=== PATIENT | female | born 1990 | race Caucasian/White ===

== ENCOUNTER 2020-12-12 09:30 | Outpatient (CLI) | payer BC, SELFPAY ==
--- NOTE | 2020-12-12 11:30 | NEURO_ITS ---
Impression: # Complains of gait dysfunction. # Bilateral amplitude drop of nerve responses. # Neurogenic changes in the muscles but no acute changes. # Possibly higher involvement. # Clinical correlation recommended. Nerve Conduction Studies Anti Sensory Summary Table Stim Site NR Peak (ms) P-T Amp (?V) Site1 Site2 Delta-P (ms) Dist (cm) Jitendra (m/s) Left Sup Fibular Anti Sensory (Ant Lat Mall) 14 cm 3.6 6.1 14 cm Ant Lat Mall 3.6 16.0 44 Right Sup Fibular Anti Sensory (Ant Lat Mall) 14 cm 4.4 27.5 14 cm Ant Lat Mall 4.4 16.0 36 Left Sural Anti Sensory (Lat Mall) Calf 4.2 3.0 Calf Lat Mall 4.2 16.0 38 Right Sural Anti Sensory (Lat Mall) Calf 4.8 9.8 Calf Lat Mall 4.8 16.0 33 Motor Summary Table Stim Site NR Onset (ms) O-P Amp (mV) Site1 Site2 Delta-0 (ms) Dist (cm) Jitendra (m/s) Left Peroneal Motor (Vastus Med) Ankle 4.2 0.5 Popit Ankle 7.7 35.0 45 Popit 11.9 0.2 Right Peroneal Motor (Vastus Med) Ankle 4.8 0.7 Popit Ankle 7.7 33.0 43 Popit 12.5 0.7 Left Tibial Motor (Abd Caballero Brev) Ankle 4.8 0.5 Knee Ankle 8.5 35.0 41 Knee 13.3 0.2 Right Tibial Motor (Abd [place]allero Brev) Ankle 4.4 0.8 Knee Ankle 9.0 40.0 44 Knee 13.4 0.2 F Wave Studies NR F-Lat (ms) L-R F-Lat (ms) Left Peroneal (Mrkrs) (EDB) 54.97 0.58 Right Peroneal (Mrkrs) (EDB) 55.56 0.58 Left Tibial (Mrkrs) (Abd Hallucis) 53.92 0.47 Right Tibial (Mrkrs) (Abd Hallucis) 54.39 0.47 EMG Side Muscle Nerve Root Ins Act Fibs Amp Dur Recrt Comment Right AntTibialis Dp Br Fibular L4-5 Nml Nml Nml Nml Nml Right Gastroc Tibial S1-2 Nml Nml Nml Nml Nml Right Fibularis Long Sup Br Fibular L5-S1 Nml Nml Decr Nml Reduced Right Flex Dig Long Tibial L5-S2 Nml Nml Nml Nml Nml Right Ext Dig Brev Dp Br Fibular L5, S1 Nml Nml Decr Nml Reduced Left AntTibialis Dp Br Fibular L4-5 Nml Nml Nml Nml Nml Left Gastroc Tibial S1-2 Nml Nml Nml Nml Nml Left Fibularis Long Sup Br Fibular L5-S1 Nml Nml Decr Nml Reduced Left Flex Dig Long Tibial L5-S2 Nml Nml Nml Nml Nml Left Ext Dig Brev Dp Br Fibular L5, S1 Nml Nml Decr Nml Reduced MTDD
== END 2020-12-12 09:31 | disposition home or self-care (01) ==
LOC: ANHNEURO 09:36
PROVIDERS: Visit Provider Orthopaedic Surgery
DX: R26.89 Other abnormalities of gait and mobility (principal)
CPT/HCPCS: 95886; 95910